=== PATIENT | male | born 1990 | race Caucasian/White ===

== ENCOUNTER 2019-04-19 10:33 | Emergency (ER) | payer OTHER ==
--- OUTSIDE RECORDS SUMMARY | 2019-04-19 11:20 | XMS REPORT | Continuity of Care Document ---
:1990 External Reference #:[id number] Author Name Emily Guo MD (transmitted by agent of provider Bhavani Santos) Address [address], [place] [address] Care Team Providers Name Role Phone Moustapha Urban MD - Dermatology Care Team Information Community Relations Assistant Ghazala Cobb M.D. - Family Medicine Care Team Information Community Relations Assistant Problems Active Problems Provider Date Opiate misuse Neal Ely M.D.,FACP Onset: 02/28/2017 Chronic alcoholism in remission Neal Ely M.D.,FACP Onset: 2017 Benzodiazepine misuse Neal Ely M.D.,FACP Onset: 02/28/2017 Adult attention deficit hyperactivity Neal Ely M.D.,FACP Onset: 06/2017 disorder Nicotine dependence Neal Ely M.D.,FACP Onset: 12/16/2017 Note: vaping Social History Type Date Description Comments Sex Unknown Tobacco Use Start: Unknown End: Former Cigarette Smoker Unknown ETOH Use 03/12/2017 Denies alcohol use Tobacco Use Reviewed: 02/28/17 Patient is a current uses a vape daily smoker, smokes every day Recreational Drug Use 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 Smoking Status Reviewed: 04/06/19 Patient is a current uses a vape daily smoker, smokes every day Allergies, Adverse Reactions, Alerts Description No Known Drug Allergies Medications Active Medications SIG Qnty Indications Ordering Provider Date Concerta once a day 14tabs F90.0 Veronica Emilee, 01/19/2019 18mg Tablets M.D., FACP ER Suboxone 1 strip sl three 3units Daniel Flores, 08/03/2018 8-2mg Film times a day Carson Selenium Sulfide topical every 360ml Neal Frederick 02/15/2018 day, rinse, as Carson Ely,FACP 2.25% Shampoo directed Nicotine Mini 1 sl every 2 81units Emily Guo, 02/28/2017 2mg hours as needed Lozenges Hydroxyzine HCL 1 tablets by Unknown 25mg mouth every 6-8 Tablets hours as needed for anxiety Buspirone HCL one by mouth Unknown 10mg three times a day Tablets as needed for anxiety Gabapentin take one tablet F41.9 Unknown 600mg by mouth three Tablets times a day Immunizations CPT Code Status Date Vaccine Reaction Lot # [id number] Given 01/19/2019 Influenza Virus Vaccine, [id number] Quadrivalent ([id number]), Derived From Cell 32891 Given 12/16/2017 Pneumonia Vaccine No immediate [id number] reactioon... 35434 Given 12/16/2017 Influenza Virus Vaccine, No immedite [id number] Quadrivalent, Split, reaction..jh Preservative Free [id number] Given 02/28/2017 Influenza Virus Vaccine, [id number] Quadrivalent, Split, Preservative Free Vital Signs Date Vital Result Comment 04/06/2019 2:49pm Height 67 inches 5'7" Weight 222.00 lb Heart Rate 103 /min BP Systolic Sitting 145 mmHg BP Diastolic Sitting 101 mmHg Body Temperature 97.9 F O2 % BldC Oximetry 99 % BMI (Body Mass Index) 34.8 kg/m2 01/19/2019 11:02am Height 67 inches 5'7" Weight 219.00 lb Heart Rate 84 /min BP Systolic Sitting 126 mmHg BP Diastolic Sitting 79 mmHg O2 % BldC Oximetry 100 % BMI (Body Mass Index) 34.3 kg/m2 Results Description No Information Available Procedures Description No Information Available Medical Devices Description No Information Available Encounters Type Date Location Provider Dx Diagnosis Office Visit 01/19/2019 [facility] Kelsie Nirmal, F11.20 Opioid dependence, 10:50a Medicine - [facility] uncomplicated Z23 Encounter for immunization F41.9 Anxiety disorder, unspecified F17.210 Nicotine dependence, cigarettes, uncomplicated F90.0 Attn-defct hyperactivity disorder, predom inattentive type Assessments Date Code Description Provider 04/06/2019 F11.20 Opioid dependence, uncomplicated Emily Guo MD 04/06/2019 F41.9 Anxiety disorder, unspecified Emily Guo MD 04/06/2019 F17.210 Nicotine dependence, cigarettes, Emily Guo MD uncomplicated 04/06/2019 F90.0 Attention-deficit hyperactivity disorder, Emily Guo MD predominantly inat 04/06/2019 I10 Essential (primary) hypertension Emily Guo MD 04/06/2019 Z23 Encounter for immunization Emily Guo MD 01/19/2019 F11.20 Opioid dependence, uncomplicated Kelsie Kinney M.D. 01/19/2019 Z23 Encounter for immunization Kelsie Kinney M.D. 01/19/2019 F41.9 Anxiety disorder, unspecified Kelsie Kinney M.D. 01/19/2019 F17.210 Nicotine dependence, cigarettes, Kelsie Kinney M.D. uncomplicated 01/19/2019 F90.0 Attention-deficit hyperactivity disorder, Kelsie Kinney M.D. predominantly inat Plan of Treatment Future Appointment(s):04/20/2019 11:30 am - Emily Guo MD at [facility]04/06/2019 - Emily Guo MDF11.20 Opioid dependence, uncomplicatedFollow up:BENJI from [facility] for records RTO in 2 tecofK65.9 Anxiety disorder, jbvvgoqhpfnQ87.210 Nicotine dependence, cigarettes, wtlqljdtektbzW25.0 Attention-deficit hyperactivity disorder, predominantly inatI10 Essential (primary) [id number] Encounter for immunization Functional Status Description No Information Available Mental Status Description No Information Available Referrals Description No Information Available
[2019-04-19 11:43] VITALS: BP 152/93
--- NOTE | 2019-04-19 16:25 | ED ---
Skin Complaint - HPI Summary HPI Summary: Pt. is a 28 male who presents emergency department for lip pain and swelling 3 days. Patient states he had a pimple to his chin that he squeezed 3 days ago progressed to lip swelling and pain. No past medical history. Denies fever, chills, nausea, vomiting. Symptoms are mild in severity. No current modifying factors. - History of Current Complaint Chief Complaint: EDFacialInjury Time Seen by Provider: 04/19/19 10:43 Stated Complaint: SWOLLEN LIP PER PT Hx Obtained From: Patient Pain Intensity: 0 Pain Scale Used: 0-10 Numeric - Allergy/Home Medications Allergies/Adverse Reactions: Allergies Allergy/AdvReac Type Severity Reaction Status Date / Time No Known Allergies Allergy Verified 04/19/19 10:38 Home Medications: Home Medications Buprenorp/Nalox 8-2 MG FILM [Suboxone 8 mg-2 mg Sl Film] 1 each SL BID 04/19/19 [History Confirmed 04/19/19] Gabapentin TAB(NF) [Neurontin 600 mg TAB(NF)] 600 mg PO TID 04/19/19 [History Confirmed 04/19/19] buPROPion TAB* [Wellbutrin TAB*] 300 mg PO DAILY 04/19/19 [History Confirmed ] busPIRone TAB* [Buspar TAB *] 15 mg PO TID 04/19/19 [History Confirmed 04/19/19] PMH/Surg Hx/FS Hx/Imm Hx Previously Healthy: Yes Infectious Disease History: No Infectious Disease History: Denies: Traveled Outside the [place] in Last 30 Days - Social History Alcohol Use: None Substance Use Type: Reports: None Smoking Status (MU): Never Smoked Tobacco Review of Systems Constitutional: Negative Negative: Fever, Chills Positive: Other - Swelling to right lower lip. Gastrointestinal: Negative Negative: Vomiting, Nausea All Other Systems Reviewed And Are Negative: Yes Physical Exam Triage Information Reviewed: Yes Vital Signs On Initial Exam: Initial Vitals Temp Pulse Resp BP Pulse Ox 98.4 F 85 19 147/102 96 04/19/19 10:35 04/19/19 10:35 04/19/19 10:35 04/19/19 10:35 04/19/19 10:35 Vital Signs Reviewed: Yes Appearance: Positive: Well-Appearing - Pt. sitting on bed in NAD. Friend present. Skin: Positive: Warm, Dry Head/Face: Positive: Normal Head/Face Inspection Eyes: Positive: Normal, EOMI ENT: Positive: Other - Erythema and edema noted to right aspect of the lower lip with induration. No facial cellulitis. No trismus. Neck: Positive: Supple, No Lymphadenopathy Neurological: Positive: Normal, CN Intact II-III Psychiatric: Positive: Affect/Mood Appropriate Procedures - Sedation Patient Received Moderate/Deep Sedation with Procedure: No Diagnostics - Vital Signs Vital Signs Temp Pulse Resp BP Pulse Ox 04/19/19 11:42 98.8 F 78 16 152/93 97 04/19/19 10:35 98.4 F 85 19 147/102 96 - Laboratory Lab Statement: Any lab studies that have been ordered have been reviewed, and results considered in the medical decision making process. Course/Dx - Course Course Of Treatment: Pt. with cellulitis/ early abscess to lower lip. Afebrile and well appearing. No drainable abscess today. Will place on bactrim. To apply warm compresses. Pt. has apt with pcp tomorrow for recheeck. Will return to er for increased redness, swelling, fever or if concerned. - Differential Diagnoses - Skin Complaint Differential Diagnoses: Abscess, Cellulitis - Diagnoses Provider Diagnoses: Abscess, Cellulitis Discharge ED - Sign-Out/Discharge Documenting (check all that apply): Patient Departure - Discharge Plan Condition: Good Disposition: HOME Patient Education Materials: Abscess (ED) Forms: *Work Release Referrals: Ghazala Cobb MD [Primary Care Provider] - Additional Instructions: Follow up with PCP as scheduled for recheck Can rotate ibuprofen and tylenol every 3 hours for pain control Apply warm compresses at least 3x a day Return to ER for fever, increased redness, swelling, or if concerned - Billing Disposition and Condition Condition: GOOD Disposition: Home - Attestation Statements Provider Attestation: I was available for consultation for this patient. I did not evaluate the patient or participate in any medical decision making or disposition decisions unless I am specifically named in the chart as having consulted on the patient. If I have consulted on the patient, please see my own ED note on the patient encounter. Leobardo Sandoval MD
== END 2019-04-19 11:42 | disposition home or self-care (01) ==
LOC: ED 10:33
DX: K13.0 Diseases of lips (principal)
CPT/HCPCS: 99282

== ENCOUNTER 2019-04-22 12:30 | Emergency (ER) | payer OTHER ==
[2019-04-22] MEDS ORDERED: HYDROcodone/ACETAMIN 5-325 MG* 1 TAB PO ONE (14:38)
[2019-04-22] MEDS ORDERED: Lidocaine 2.5%/Prilocain 2.5%* 5 GM TUBE TOPICAL ONE (14:38)
[2019-04-22] MEDS ORDERED: Lidocaine 1% w EPI 1:200,000* SDV 30 ML VIAL INJ ONE (14:38)
--- NOTE | 2019-04-22 16:15 | ED ---
Skin Complaint - HPI Summary HPI Summary: 28-year-old male presents with abscess to his lip. He states that he is currently on Bactrim. he states the area has started to drain. He states that the lip has been more swollen. He denies any fevers or chills. No difficulty swallowing. He is on Suboxone. never had this before. no sore throat. no chest pain or sob. no dental pain. - History of Current Complaint Chief Complaint: EDRashSkinAbscess Time Seen by Provider: 04/22/19 13:58 Stated Complaint: SKIN ISSUE PER PT Pain Intensity: 5 - Allergy/Home Medications Allergies/Adverse Reactions: Allergies Allergy/AdvReac Type Severity Reaction Status Date / Time No Known Allergies Allergy Verified 04/22/19 12:35 Home Medications: Home Medications Buprenorp/Nalox 8-2 MG FILM [Suboxone 8 mg-2 mg Sl Film] 1 each SL BID 04/19/19 [History Confirmed 04/22/19] Gabapentin TAB(NF) [Neurontin 600 mg TAB(NF)] 600 mg PO TID 04/19/19 [History Confirmed 04/22/19] buPROPion TAB* [Wellbutrin TAB*] 300 mg PO DAILY 04/19/19 [History Confirmed ] busPIRone TAB* [Buspar TAB *] 15 mg PO TID 04/19/19 [History Confirmed 04/22/19] Cephalexin CAP* [Keflex CAP*] 500 mg PO TID #29 cap 04/22/19 [Rx] Lactose-Reduced Food [Boost 100 Calorie Smart] 1 liq PO DAILY #1 liq 04/22/19 [ Rx] Mupirocin 2% OINT* [Bactroban 2 % Oint*] 1 applic TOPICAL BID #1 tube 04/22/19 [ Rx] PMH/Surg Hx/FS Hx/Imm Hx Respiratory History: Denies: Hx Asthma Infectious Disease History: No Infectious Disease History: Denies: Traveled Outside the [place] in Last 30 Days - Family History Known Family History: Positive: Non-Contributory - Social History Alcohol Use: None Substance Use Type: Reports: None Smoking Status (MU): Never Smoked Tobacco Review of Systems Negative: Fever Negative: Chest Pain Negative: Shortness Of Breath Positive: Other - lip abscess All Other Systems Reviewed And Are Negative: Yes Physical Exam Triage Information Reviewed: Yes Vital Signs On Initial Exam: Initial Vitals Temp Pulse Resp BP Pulse Ox 97.3 F 79 18 137/102 97 04/22/19 12:31 04/22/19 12:31 04/22/19 12:31 04/22/19 12:31 04/22/19 12:31 Vital Signs Reviewed: Yes Appearance: Positive: Well-Appearing Skin: Positive: Warm, Dry Head/Face: Positive: Normal Head/Face Inspection Eyes: Positive: Normal, EOMI, GERARDO, Conjunctiva Clear ENT: Positive: Normal ENT inspection, Pharynx normal, TMs normal, Other - edema to lower lip Respiratory/Lung Sounds: Positive: Clear to Auscultation, Breath Sounds Present Cardiovascular: Positive: Normal, RRR Musculoskeletal: Positive: Normal Neurological: Positive: Normal Psychiatric: Positive: Normal Procedures - Sedation Patient Received Moderate/Deep Sedation with Procedure: No - Incision and Drainage lip Site: lip Anesthesia: Digital Instrument(s): Scalpel Diagnostics - Vital Signs Vital Signs Temp Pulse Resp BP Pulse Ox 04/22/19 12:31 97.3 F 79 18 137/102 97 - Laboratory Lab Statement: Any lab studies that have been ordered have been reviewed, and results considered in the medical decision making process. Course/Dx - Course Course Of Treatment: 28-year-old male presents with abscess to his lip. He states that he is currently on Bactrim. he states the area has started to drain. He states that the lip has been more swollen. He denies any fevers or chills. No difficulty swallowing. He is on Suboxone. never had this before. no sore throat. no chest pain or sob. no dental pain. On exam has abscess noted to lower lip. applied lidocaine and made small incision and drained area with copious amount of pus. will place on keflex in addition to bactrim. sent wound for culture. gave referral to plastic surgery. told if develop fever to return. told apply heat to area. patient understand and agrees with plan. - Differential Diagnoses - Skin Complaint Differential Diagnoses: Abscess, Cellulitis, Contact Dermatitis - Diagnoses Provider Diagnoses: Lip abscess Discharge ED - Sign-Out/Discharge Documenting (check all that apply): Patient Departure - Discharge Plan Condition: Good Disposition: HOME Prescriptions: Cephalexin CAP* [Keflex CAP*] 500 mg PO TID #29 cap Lactose-Reduced Food [Boost 100 Calorie Smart] 1 liq PO DAILY #1 liq Mupirocin 2% OINT* [Bactroban 2 % Oint*] 1 applic TOPICAL BID #1 tube Patient Education Materials: Abscess (ED) Referrals: Jagdish Patino MD [Medical Doctor] - Ghazala Cobb MD [Primary Care Provider] - Additional Instructions: keflex three times a day for 10 days, first dose given in ED Apply warm compresses to area apply mupirocin to area twice a day Take ibuprofen or Tylenol for pain every 6 hours Follow up with primary within 3 days a referral was given for plastic Return to ED if develop fever, area of redness spreads, or any new or worsening symptoms - Billing Disposition and Condition Condition: GOOD Disposition: Home
[2019-04-22] MEDS ORDERED: Cephalexin CAP* 500 MG PO ONE (16:23)
[2019-04-22 18:24] VITALS: BP 145/84
--- NOTE | 2019-04-23 06:15 | ED ---
Imaging and Labs Follow Up Follow Up Type: Labs/Cultures Labs/Culture Result: Preliminary culture positive for staph aureus. Negative for MRSA. Patient Communication/Plan: Patient was placed on Keflex but is also on Bactrim. will wait for final culture for sensitivity. Provider Diagnoses: Lip abscess
--- NOTE | 2019-04-25 07:40 | ED ---
Imaging and Labs Follow Up Follow Up Type: Labs/Cultures Labs/Culture Result: Staph aureus positive Patient Communication/Plan: patient placed on keflex Patient Communication/Plan: will cover organism Provider Diagnoses: Lip abscess
== END 2019-04-22 16:40 | disposition home or self-care (01) ==
LOC: ED 12:30
DX: K13.0 Diseases of lips (principal)
CPT/HCPCS: 10060; 87070; 87077; 87186; 87205; 87640; 87641; 99282; A9270-GY; J2001